=== PATIENT | male | born 1935 | race Asian ===

== ENCOUNTER 2021-06-05 21:15 | Emergency (ER) | payer OTHER ==
[~2021-06-05] VITALS: Ht 175.3 cm; Wt 74.8 kg
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
--- NOTE | 2021-06-05 22:04 | NUR ---
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
[2021-06-05] MEDS ORDERED: TDAP [DIPH/PERTUSSIS/TET] 0.5 ML VIAL IM ONE (22:30)
[2021-06-05] MEDS ORDERED: HYDR-4303 PO (23:19)
--- NOTE | 2021-06-05 23:39 | NUR ---
SPLINT APPLIED TO PT'S R WRIST. CD GIVEN
--- NOTE | 2021-06-05 23:40 | NUR ---
Patient discharged to home in stable condition. Written and verbal after care instructions given. Patient verbalizes understanding of instruction. PT ambulatory with a steady gait
[2021-06-06 00:04] VITALS: BP 144/76
== END 2021-06-06 00:04 | disposition home or self-care (01) ==
LOC: ER 21:18
DX: S62.141A Displaced fracture of body of hamate [unciform] bone, right wrist, initial encounter for closed fracture (principal); I10 Essential (primary) hypertension; Z79.891 Long term (current) use of opiate analgesic; V89.2XXA Person injured in unspecified motor-vehicle accident, traffic, initial encounter; Y93.89 Activity, other specified; Y92.89 Other specified places as the place of occurrence of the external cause; Y99.8 Other external cause status
CPT/HCPCS: 73110; 73130-TC